=== PATIENT | female | born 1945 | race Caucasian/White ===

== ENCOUNTER 2021-03-03 13:29 | Outpatient (CLI) | payer MEDICARE, BC, SELFPAY ==
--- NOTE | 2021-03-03 13:38 | MM_ITS ---
WS: [id number] BILATERAL DIGITAL SCREENING MAMMOGRAPHY WITH CAD CLINICAL INFORMATION: SCREENING HISTORY: Screening mammogram. No current complaints. COMPARISON: None. TECHNIQUE: Bilateral CC and MLO views. FINDINGS: Scattered fibroglandular densities bilaterally. Incidental punctate calcifications left breast. No paz spicious focal mass, asymmetry, calcifications, or architectural distortion. No evidence of malignanc y. MM/[place] [id number] IMPRESSION: BI-RADS: 2-Benign FOLLOW UP: 1 Year Follow-up Recommend return to annual screening mammography.
--- NOTE | 2021-03-03 14:05 | XR_ITS ---
WS: [id number] DEXA (DUAL ENERGY X-RAY ABSORPTIOMETRY) Bone mineral density was performed using a [employer] machine. HISTORY: AGE RELATED OSTEOPOROSIS WITHOUT CURRENT PATHOLOGICAL FRACTURE COMPARISON: 08/20/2018 Left forearm BMD: 0.766 g/cm2. T score: -1.3 Z score: 1.0 Total hip BMD: Left: 1.131 g/cm2. T score: 1.0 Z score: 2.1 Right: 1.109 g/cm2. T score: 0.8 Z score: 1.9 10 year probability of a major osteoporotic fracture is 13%. Compared to the prior study from 08/20/2018. LEFT forearm bone mineral density has decreased by 3.5%. Bilateral hips bone mineral density has decreased by 1.1%. XR/XR DEXA axial skeleton* [id number] IMPRESSION: OSTEOPENIA based upon the WHO classification for females. Decrease in bone mineral density in the LEFT forearm since the prior study. No significant change involving the hips.
== END 2021-03-03 13:30 | disposition home or self-care (01) ==
PROVIDERS: PCP Family Medicine; Visit Provider Nurse Practitioner Family
DX: Z12.31 Encounter for screening mammogram for malignant neoplasm of breast (principal); M81.0 Age-related osteoporosis without current pathological fracture; M85.88 Other specified disorders of bone density and structure, other site
CPT/HCPCS: 77067; 77080

== ENCOUNTER 2021-03-12 07:47 | Outpatient (CLI) | payer MEDICARE, BC, SELFPAY ==
--- NOTE | 2021-03-12 07:55 | USCV_ITS ---
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 HISTORY: Diameter (cm) AP x Transverse x Length Velocity (cm/s) Waveform Prox Aorta: 1.94 x 2.31 x 38.30 Mid Aorta: 2.34 x 2.59 x 41.30 Distal Aorta: 5.02 x 4.71 x 7.87 49.90 Right Iliac Prox: x x 81.80 Left Iliac Prox: x x 84.60 Stent Prox Landing x x 41.80 Aneurysmal Sac Max x x Lt Lat Sac Dim Rt Lat Sac Dim Stent Dist Landing x x Right Iliac Stent x x 90.10 Left Iliac Stent x x 115.00 Right Renal Art 77.70 Left Renal Art 76.60 FINDINGS: The aortic stent graft appears to be intact with no evidence of endoleak Mild to moderate diffuse plaques in the aorta The diameter of the infrarenal aortic aneurysm sac measured 5.02 x 4.71 cm CONCLUSIONS 1. Patent aortic stent graft. 2. The maximum diameter of the infrarenal aneurysm sac is 5.02 x 4.71 cm 3. The iliac stent grafts are patent with no evidence of any significant stenosis 4. No evidence of any blood flow in the aneurysm sac Compared to the study from 01/08/2019, the aneurysm sac seems to have a slight decrease in the size. Technically limited study Dr Jose Membreno MD [facility] (Electronically Signed) Final Date: 12 March 2021 18:53 S
== END 2021-03-12 07:48 | disposition home or self-care (01) ==
PROVIDERS: PCP Family Medicine; Visit Provider Nurse Practitioner Family
DX: I71.9 Aortic aneurysm of unspecified site, without rupture (principal); Z95.828 Presence of other vascular implants and grafts
CPT/HCPCS: 93978

== ENCOUNTER 2021-04-15 09:23 | Outpatient (CLI) | payer MEDICARE, BC, SELFPAY ==
--- NOTE | 2021-04-15 09:42 | CT_ITS ---
WS: [id number] CTA CHEST WITH CT ABDOMEN AND PELVIS, with and without contrast. HISTORY: Follow-up abdominal aortic graft. TECHNIQUE: CT angiogram is performed through the chest. Additional imaging is performed through the a bdomen and pelvis with IV contrast. Sagittal and coronal reformats have been submitted. MIP imaging also reviewed. All CT scans at [facility] use at least one of these dose optimization techniqu es: automated exposure control; mA and/or kV adjustment per patient size (includes targeted exams whe re dose is matched to clinical indication); or iterative reconstruction. Contrast: Visipaque 95 cc IV. DLP: 2325.52 mGycm COMPARISON: 01/16/2019 and 03/12/2021 ultrasound. Chest CTA: Moderate atherosclerotic plaque throughout a mildly ectatic thoracic aorta. No aneurysm. T here is no dissection. Mild atherosclerotic plaque at the origin of the great vessels. No high-grade stenosis. Just less than 50% stenosis involving the RIGHT innominate. Prior CABG. Heart size is jose r l. No pericardial or pleural effusion. Mildly prominent pulmonary artery at 3.8 cm in diameter. No pu lmonary mass, pneumonia or nodules. Normal vasculature. Focal subsegmental atelectasis at the RIGHT l maria [place]es[place] base. No osseous abnormalities within the thorax. No soft tissue abnormality. Abdomen CT: Status post endovascular stenting of the abdominal aorta. Ak Chin aneurysmal sac is stable at 5.0 cm at its maximum diameter. Endovascular grafting begins just above the level of the renal ar teries. The lumen of the graft is widely patent. On the delayed imaging no endovascular leak is ident ified. Graft extends into the iliac arteries bilaterally. No aneurysmal dilatation of the iliacs. Normal appearance of the liver, spleen, adrenals and pancreas. No cortical atrophy or prior ischemic event of either kidney. 1.8 cm cyst lower pole LEFT kidney. No solid mass. Cholelithiasis without acu te cholecystitis. No adenopathy or ascites. Visualized GI tract is negative for acute process. Normal appendix. Fat-containing umbilical hernia. Pelvic CT: No free fluid or adenopathy. Prior hysterectomy. No adnexal masses. Anterior wedging of L4 from mild compression deformity which is similar to the study of 01/16/2019. CT/CT angio chest abdomen pelvis IMPRESSION: 1. Stable aorta iliac endograft. No enlargement of the nikolski aneurysm or endo vascular leak. 2. Mild atherosclerosis thoracic aorta with no aneurysm or dissection. 3. Cholelithiasis without acute cholecystitis. 4. Stable cyst lower pole LEFT kidney. 5. Stable 20% L4 compression fracture. 6. Prior hysterectomy.
[2021-04-15 10:05] LABS: Blood Urea Nitrogen 13 mg/dL (8-23)
[2021-04-15] MEDS: iodixanol 320 mg/mL 100mL Btl IV (10:18)
== END 2021-04-15 09:24 | disposition home or self-care (01) ==
PROVIDERS: PCP Family Medicine; Visit Provider Nurse Practitioner Family
DX: I71.9 Aortic aneurysm of unspecified site, without rupture (principal); Z90.710 Acquired absence of both cervix and uterus; S32.048A Other fracture of fourth lumbar vertebra, initial encounter for closed fracture; X58.XXXA Exposure to other specified factors, initial encounter; N28.1 Cyst of kidney, acquired; K80.20 Calculus of gallbladder without cholecystitis without obstruction; I70.0 Atherosclerosis of aorta
CPT/HCPCS: 71275; 74174; 82565; 84520; Q9967

== ENCOUNTER 2021-06-29 08:46 | Outpatient (CLI) | payer MEDICARE, BC, SELFPAY ==
--- NOTE | 2021-06-29 08:58 | XR_ITS ---
WS: [id number] Exam: XR chest 2V* [id number] Date/Time of Exam: 06/29/2021 8:58 AM Reason For Exam: SHORTNESS OF BREATH Comparison 07/05/2018. The lungs are clear and fully expanded. Heart size is top limits normal. Signs of previous CABG surge ry. The mediastinum is not widened. No pleural effusions. Regional bony elements are intact. XR/XR chest 2V* [id number] IMPRESSION: 1. No acute cardiopulmonary finding.
== END 2021-06-29 08:47 | disposition home or self-care (01) ==
LOC: RAD 08:54
PROVIDERS: PCP Family Medicine; Visit Provider Nurse Practitioner Family
DX: R06.02 Shortness of breath (principal)
CPT/HCPCS: 71046

== ENCOUNTER 2021-08-17 10:24 | Outpatient (CLI) | payer MEDICARE, BC, SELFPAY ==
[2021-08-17 11:05] LABS: Basophils # 0.1 10^3/uL (0.0-0.1); Basophils % 0.5 %; Eosinophils # 0.6 10^3/uL (0.0-0.8); Eosinophils % 3.2 %; Hematocrit 43.1 % (37.0-47.0); Lymphocytes # 12.4 10^3/uL (0.8-4.8); Lymphocytes % 72.1 %; Mean Corpuscular HGB Conc 32.5 g/dL (30.0-36.0); Mean Corpuscular Volume 89.4 fl (81-99); Mean Platelet Volume 9.9 fL (7.4-10.4); Monocytes # 0.7 10^3/uL (0.2-0.9); Monocytes % 4.2 %; Neutrophils % 19.8 %; Nucleated Red Blood Cells % 0 %; Platelet Count 217 10^3/cmm (130-400); Red Blood Count 4.82 10^6/uL (4.1-5.3); Red Cell Distribution Width 12.9 % (12.1-15.1); White Blood Count 17.2 10^3/uL (4.0-10.0)
[2021-08-17 11:23] LABS: Alanine Aminotransferase 12 U/L (0-33); Albumin Level 4.1 g/dL (3.5-5.2); Alkaline Phosphatase 62 IU/L (35-105); Anion Gap 17.5 (5-19); Aspartate Amino Transferase 16 U/L (0-32); Blood Urea Nitrogen 14 mg/dL (8-23); C Reactive Protein 0.7 mg/L (0.0-4.9); Calcium 9.7 mg/dL (8.5-10.5); Carbon Dioxide 24 mmol/L (22-29); Chloride 103 mmol/L (98-107); Globulin 2.3 g/dL (1.3-4.6); Glucose 93 mg/dL (65-115); Osmolality Calculated 290 mOsm/kg (285-295); Potassium 4.5 mmol/L (3.5-5.1); Sodium 140 mmol/L (136-145); Total Bilirubin 0.4 mg/dL (0.15-1.2); Total Protein 6.4 g/dL (6.6-8.7)
[2021-08-17 11:26] LABS: Erythrocyte Sedimentation Rate 6 mm/hr (0-15)
[2021-08-17 11:30] LABS: Slide Review Slide Review Perform
[2021-08-18 11:54] LABS: COMPLEMENT COMPONENT C3C 173 mg/dL (83-193); COMPLEMENT COMPONENT C4C 26 mg/dL (15-57)
[2021-08-18 11:57] LABS: CENTROMERE B ANTIBODY <1.0 NEG AI (<1.0 NEG); JO-1 ANTIBODY <1.0 NEG AI (<1.0 NEG); RNP ANTIBODY <1.0 NEG AI (<1.0 NEG); SCL-70 ANTIBODY <1.0 NEG AI (<1.0 NEG); SJOGREN'S ANTIBODY (SS-A) <1.0 NEG AI (<1.0 NEG); SM ANTIBODY <1.0 NEG AI (<1.0 NEG); SS-B <1.0 NEG AI (<1.0 NEG)
[2021-08-18 13:04] LABS: COMPLEMENT, TOTAL (CH50) >60 U/mL (31-60)
[2021-08-18 14:07] LABS: Cyclic Citrullinated Peptide <16 UNITS
[2021-08-18 15:48] LABS: ANA SCREEN, IFA NEGATIVE (NEGATIVE)
[2021-08-18 16:27] LABS: THYROID PEROXIDASE ANTIBODIES <1 IU/mL (<9)
[2021-08-20 10:37] LABS: DNA AB (DS) CRITHIDIA,IFA NEGATIVE (NEGATIVE)
== END 2021-08-17 10:25 | disposition home or self-care (01) ==
LOC: LAB 10:36
PROVIDERS: PCP Family Medicine; Visit Provider Internal Medicine Pulmonary Disease
DX: M25.641 Stiffness of right hand, not elsewhere classified (principal); M25.642 Stiffness of left hand, not elsewhere classified
CPT/HCPCS: 36415; 80053; 85025; 85651; 86140; 86160; 86162; 86200; 86235; 86255; 86376; 86431

== ENCOUNTER → 2021-09-21 08:34 | Outpatient (BNVA) | payer MEDICARE, BC, SELFPAY | PROVIDERS: PCP Family Medicine; Visit Provider Internal Medicine Rheumatology | DX: M06.9 Rheumatoid arthritis, unspecified (principal); Z79.899 Other long term (current) drug therapy; R06.00 Dyspnea, unspecified; I25.10 Atherosclerotic heart disease of native coronary artery without angina pectoris; Z79.1 Long term (current) use of non-steroidal anti-inflammatories (NSAID); Z87.891 Personal history of nicotine dependence | CPT/HCPCS: 99204 ==

== ENCOUNTER 2021-09-22 10:28 | Outpatient (CLI) | payer MEDICARE, BC, SELFPAY ==
[2021-09-22 11:11] LABS: Erythrocyte Sedimentation Rate 6 mm/hr (0-15)
[2021-09-22 11:32] LABS: 25 Hydroxy Vitamin D 38 ng/mL (30-100)
--- NOTE | 2021-09-22 11:33 | XR_ITS ---
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 Findings: No fractures or dislocations are seen. The soft tissues are unremarkable there is osteoar thritis at the articulation between the base of the right first metacarpal and the trapezium. 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
--- NOTE | 2021-09-22 11:33 | XR_ITS ---
WS: [id number] Left hand, 3 views, 09/22/2021 Clinical Data: Z79.899 - Other long-term (current) drug therapy Comparison: None. Findings: No fractures or dislocations are seen. The soft tissues are unremarkable. There is osteoarthritis at the base of the left first metacarpal articulation with the trapezium. XR/XR hand LT min 3V* [id number] Impression: Osteoarthritis of the base of the left first metacarpal.
== END 2021-09-22 10:29 | disposition home or self-care (01) ==
LOC: LAB 10:32
PROVIDERS: PCP Family Medicine; Visit Provider Internal Medicine Rheumatology
DX: M19.90 Unspecified osteoarthritis, unspecified site (principal); Z79.899 Other long term (current) drug therapy; M19.042 Primary osteoarthritis, left hand; M19.041 Primary osteoarthritis, right hand
CPT/HCPCS: 73130; 82306; 85651; 86140

== ENCOUNTER → 2021-10-04 09:53 | Outpatient (BNVA) | payer MEDICARE, BC, SELFPAY | PROVIDERS: PCP Family Medicine; Visit Provider Internal Medicine Pulmonary Disease | DX: R06.02 Shortness of breath (principal); M25.641 Stiffness of right hand, not elsewhere classified; M25.642 Stiffness of left hand, not elsewhere classified; R06.00 Dyspnea, unspecified; Z87.891 Personal history of nicotine dependence; E78.5 Hyperlipidemia, unspecified; I10 Essential (primary) hypertension | CPT/HCPCS: 99214 ==

== ENCOUNTER → 2021-12-17 09:29 | Outpatient (BNVA) | payer MEDICARE, BC, SELFPAY | PROVIDERS: PCP Family Medicine; Visit Provider Internal Medicine Pulmonary Disease | DX: R06.02 Shortness of breath (principal); M25.641 Stiffness of right hand, not elsewhere classified; M25.642 Stiffness of left hand, not elsewhere classified; R06.00 Dyspnea, unspecified; Z87.891 Personal history of nicotine dependence; I10 Essential (primary) hypertension; E78.5 Hyperlipidemia, unspecified; E78.00 Pure hypercholesterolemia, unspecified | CPT/HCPCS: 99214 ==

== ENCOUNTER 2021-12-29 12:57 | Outpatient (CLI) | payer MEDICARE, BC, SELFPAY ==
--- NOTE | 2021-12-29 14:20 | PFTS_ITS ---
Date of Study:12/29/21 Date of Dictation: MECHANICS: Forced vital capacity (FVC) is normal. Forced expiratory volume in one second (FEV1) is normal. FEV1/FVC is normal. FLOW VOLUME LOOP: Mild scooping. LUNG VOLUMES: Total lung capacity (TLC) is reduced. Residual volume (RV) is reduced. DIFFUSING CAPACITY FOR CARBON MONOXIDE: Mildly reduced. INTERPRETATION: The prebronchodilator spirometry is normal. No postbronchodilator spirometry was performed. Lung volumes are consistent with mild restriction. Gas exchange (DLCO) is mildly reduced. MTDD
== END 2021-12-29 12:58 | disposition home or self-care (01) ==
LOC: RT 13:00
PROVIDERS: PCP Family Medicine; Visit Provider Internal Medicine Pulmonary Disease
DX: R06.00 Dyspnea, unspecified (principal); I25.10 Atherosclerotic heart disease of native coronary artery without angina pectoris; F17.210 Nicotine dependence, cigarettes, uncomplicated
CPT/HCPCS: 94010; 94618; 94726; 94729

== ENCOUNTER → 2022-01-11 09:49 | Outpatient (BNVA) | payer MEDICARE, BC, SELFPAY | PROVIDERS: PCP Family Medicine; Visit Provider Internal Medicine Cardiovascular Disease | DX: I25.10 Atherosclerotic heart disease of native coronary artery without angina pectoris (principal); Z98.890 Other specified postprocedural states; I10 Essential (primary) hypertension; Z86.79 Personal history of other diseases of the circulatory system; E78.49 Other hyperlipidemia; Z87.891 Personal history of nicotine dependence; R00.1 Bradycardia, unspecified | CPT/HCPCS: 93005; 99214 ==

== ENCOUNTER 2022-02-10 11:06 | Outpatient (CLI) | payer MEDICARE, BC, SELFPAY ==
--- NOTE | 2022-02-10 11:15 | USCV_ITS ---
Radha Rivera Age: 76 Gender: F : 1945 Exam Date: 02/10/2022 11:17 Ordering Phys: Jimbo Bales MD Technologist: [place] [facility] [place]: rt side pressures BP: 120 / 71 HR: 50 Rhythm: Sinus Technical Quality: Adequate MEASUREMENTS (Male / Female) Normal Values 2D ECHO LV Diastolic Diameter PLAX 3.8 cm 4.2 - 5.9 / 3.9 - 5.3 cm LV Systolic Diameter PLAX 2.4 cm IVS Diastolic Thickness 1.3 cm 0.6 - 1.0 / 0.6 - 0.9 cm IVS Systolic Thickness 1.5 cm LVPW Diastolic Thickness 1.1 cm 0.6 - 1.0 / 0.6 - 0.9 cm LVPW Systolic Thickness 1.4 cm LVOT Diameter 2.8 cm LV Ejection Fraction 2D Teich 67.7 % LV Ejection Fraction MOD 2C 67.8 % LV Ejection Fraction 2C AL 68.0 % LA Diameter 3.5 cm Aorta at Sinotubular Diameter 3.0 cm IVC Diameter 1.6 cm M-MODE Aortic Annulus Diameter 3.4 cm LA Ao Ratio MM 1.0 MV E Point Septal Separation 1.7 cm DOPPLER AV Peak Velocity 149.0 cm/s LVOT Peak Velocity 98.0 cm/s AV Area Cont Eq vti 4.6 cm squared AV Area Cont Eq pk 4.1 cm squared MV Area PHT 5.0 cm squared Mitral E to A Ratio 0.9 MV E' Velocity 36.0 cm/s Mitral E to MV E' Ratio 5.9 Mitral E to LV E' Lateral Ratio 5.5 Mitral E to LV E' Septal Ratio 6.4 TR Peak Velocity 243.0 cm/s TR Peak Gradient 23.6 mmHg TV Peak E Velocity 85.0 cm/s Right Atrial Pressure 3.0 mmHg Pulmonary Artery Systolic Pressu 26.6 mmHg PV Peak Velocity 120.0 cm/s FINDINGS Left Ventricle Normal left ventricular size. LV systolic function is normal with EF of 55-60%. No regional wall motion abnormalities. Grade 1 diastolic dysfunction Right Ventricle The right ventricle is normal in size and function. Right Atrium Not well-visualized Left Atrium The left atrium is normal in size. Mitral Valve Structurally normal mitral valve without significant stenosis or prolapse. There is no mitral regurgitation. Aortic Valve Grossly normal. No significant stenosis. There is no aortic regurgitation. Tricuspid Valve Structurally normal tricuspid valve without significant stenosis. Mild tricuspid regurgitation. RVSP is 35 to 40 mmHg. This is consistent with mild pulmonary hypertension Pulmonic Valve Not well-visualized Pericardium Normal pericardium without effusion. Aorta Normal ascending aorta dimension. IVC CONCLUSIONS LV systolic function is normal with EF 55 to 60%. Grade 1 diastolic dysfunction. Mild tricuspid regurgitation. Mild pulmonary hypertension. Compared to prior echocardiogram from 2016, no significant changes are seen. Jus Freitas MD (Electronically Signed) Final Date: 23 February 2022 19:21 S
== END 2022-02-10 11:07 | disposition home or self-care (01) ==
LOC: RAD 11:07
PROVIDERS: PCP Family Medicine; Visit Provider Internal Medicine Pulmonary Disease
DX: I25.10 Atherosclerotic heart disease of native coronary artery without angina pectoris (principal); I07.1 Rheumatic tricuspid insufficiency; I27.20 Pulmonary hypertension, unspecified
CPT/HCPCS: 93306

== ENCOUNTER → 2022-02-16 10:04 | Outpatient (BNVA) | payer MEDICARE, BC, SELFPAY | PROVIDERS: PCP Family Medicine Adult Medicine; Visit Provider Internal Medicine Pulmonary Disease | DX: R06.00 Dyspnea, unspecified (principal); M25.641 Stiffness of right hand, not elsewhere classified; M25.642 Stiffness of left hand, not elsewhere classified; Z87.891 Personal history of nicotine dependence; I25.10 Atherosclerotic heart disease of native coronary artery without angina pectoris; Z95.1 Presence of aortocoronary bypass graft | CPT/HCPCS: 99214 ==

== ENCOUNTER → 2022-03-10 10:16 | Outpatient (BNVA) | payer MEDICARE, BC, SELFPAY | PROVIDERS: PCP Family Medicine Adult Medicine; Visit Provider Anesthesiology Pain Medicine | DX: M79.604 Pain in right leg (principal); M79.605 Pain in left leg; Z87.891 Personal history of nicotine dependence; Z79.891 Long term (current) use of opiate analgesic; G89.29 Other chronic pain; M47.816 Spondylosis without myelopathy or radiculopathy, lumbar region; M51.36 Other intervertebral disc degeneration, lumbar region | CPT/HCPCS: 99204 ==

== ENCOUNTER 2022-04-21 12:54 | Outpatient (CLI) | payer MEDICARE, BC, SELFPAY ==
--- NOTE | 2022-04-21 13:45 | MR_ITS ---
WS: [id number] MRI LUMBAR SPINE NONCONTRAST TECHNIQUE: Sagittal T1, T2 and STIR imaging. Axial T1 and T2 imaging. CLINICAL INFORMATION: M48.062 - Spinal stenosis, lumbar region with neurogenic ... COMPARISON: None. FINDINGS: Mild lumbar curve. No acute compression. Slight retrolisthesis L2 on L3 and L3 on L4. Slight anteroli sthesis L4 on L5. Tarlov cysts in the sacrum. L1-L2: Mild annular bulging. Spinal canal and foramen are patent. Mild facet arthropathy. L2-L3: Slight retrolisthesis. Mild central canal stenosis. Impingement RIGHT subarticular recess. Mil d facet arthropathy. Mild RIGHT foraminal narrowing. L3-L4: Mild disc bulging with moderate central canal stenosis. Moderate to advanced facet arthropathy . Mild RIGHT and no significant LEFT foraminal narrowing. L4-L5: Mild disc bulging with osteophytic ridging. Moderate central canal stenosis. Impingement trave rsing L5 nerve roots bilaterally. Advanced facet arthropathy with small facet effusions. Mild RIGHT f oraminal narrowing. L5-S1: Mild disc bulging with osteophytic ridging. Slight contact of the traversing LEFT greater than RIGHT S1 nerve roots. Far LEFT eccentric disc bulging. Foramen are patent. Advanced facet arthropath y. Bilateral renal cysts. Cholelithiasis. Aneurysmal abdominal aorta with aortic endograft repair. Visualized pelvic bony structures: Normal. Paravertebral soft tissues: Normal. Small disc protrusions in the cervical spine at C5-C6 and C7-T1. MR/MR lumbar spine wo con* [id number] IMPRESSION: 1. Mild lumbar curve. No acute compression. 2. Moderate central canal stenosis L3-L4 and L4-L5 worse L4-L5 with impingemen t traversing L5 nerve roots bilaterally. 3. Advanced facet arthropathy L4-L5 and L5-S1. 4. Mild central canal stenosis L2-L3 with impingement on the RIGHT subarticula r recess and traversing RIGHT L3 nerve root. Mild RIGHT L2-L3 foraminal narrowi ng. 5. Cholelithiasis. 6. Aneurysmal infrarenal abdominal aorta with Aortic endograft repair.
== END 2022-04-21 12:55 | disposition home or self-care (01) ==
LOC: RAD 12:55
PROVIDERS: PCP Family Medicine Adult Medicine; Visit Provider Anesthesiology Pain Medicine
DX: M48.062 Spinal stenosis, lumbar region with neurogenic claudication (principal); M48.061 Spinal stenosis, lumbar region without neurogenic claudication; M47.817 Spondylosis without myelopathy or radiculopathy, lumbosacral region
CPT/HCPCS: 72148

== ENCOUNTER → 2022-05-09 11:03 | Outpatient (BNVA) | payer MEDICARE, BC, SELFPAY | PROVIDERS: PCP Family Medicine Adult Medicine; Visit Provider Anesthesiology Pain Medicine | DX: G89.29 Other chronic pain (principal); M47.816 Spondylosis without myelopathy or radiculopathy, lumbar region; M51.36 Other intervertebral disc degeneration, lumbar region; M79.604 Pain in right leg; M79.605 Pain in left leg; Z87.891 Personal history of nicotine dependence | CPT/HCPCS: 99214 ==

== ENCOUNTER 2022-05-12 09:18 | Outpatient (CLI) | payer MEDICARE, BC, SELFPAY ==
--- NOTE | 2022-05-12 09:15 | USCV_ITS ---
Radha Rivera Age: 76 Gender: F : 1945 Exam Date: 05/12/2022 09:28 Ordering Phys: Aldo Rodriguez MD (Andy) ([email or web address] [email or web address] Technologist: Jarett Vega Exam Location: [facility] – [place] Indication: AAA HISTORY: Diameter (cm) AP x Transverse x Length Velocity (cm/s) Waveform Prox Aorta: 2.49 x 2.57 x 62.00 Mid Aorta: 2.15 x 2.91 x 48.80 Distal Aorta: 4.04 x 4.11 x 7.53 37.30 Right Iliac Prox: 1.05 x 1.22 x 41.60 Left Iliac Prox: 1.58 x 1.05 x 51.00 Stent Prox Landing x x Aneurysmal Sac Max x x Lt Lat Sac Dim Rt Lat Sac Dim Stent Dist Landing x x Right Iliac Stent x x Left Iliac Stent x x Right Renal Art 64.20 Left Renal Art 52.50 FINDINGS: Comparison:. 03/12/21 Normal flow in the endovascular stent graft, no endovascular leak. Continued slight decrease in size of the [place] aneurysm. Maxium diameter now 4.1 cm and compared to 5.0 cm on the prior exam. Good arterial flow in the iliac arteries. CONCLUSIONS Stable appearance of the endovascular aortic graft. No endovasculeak identifed or enlargement of the ch[place]ww[place] aneurysm. Dr. Malena Tillman DO (Electronically Signed) Final Date: 12 May 2022 13:52 S
== END 2022-05-12 09:19 | disposition home or self-care (01) ==
LOC: RAD 09:18
PROVIDERS: PCP Family Medicine Adult Medicine; Visit Provider Thoracic Surgery (Cardiothoracic Vascular Surgery)
DX: Z86.79 Personal history of other diseases of the circulatory system (principal); Z98.890 Other specified postprocedural states; I71.40 Abdominal aortic aneurysm, without rupture, unspecified; Z95.820 Peripheral vascular angioplasty status with implants and grafts
CPT/HCPCS: 93978

== ENCOUNTER 2022-05-24 09:30 | Outpatient (RCR) | payer MEDICARE, BC, SELFPAY | END 2022-06-22 23:59 | disposition home or self-care (01) | LOC: SPT 09:30 | PROVIDERS: PCP Family Medicine Adult Medicine; Visit Provider Anesthesiology Pain Medicine | DX: M54.50 Low back pain, unspecified (principal); G89.29 Other chronic pain | CPT/HCPCS: 97110; 97161 ==

== ENCOUNTER → 2022-06-02 09:24 | Outpatient (BNVA) | payer MEDICARE, BC, SELFPAY | PROVIDERS: PCP Family Medicine Adult Medicine; Visit Provider Thoracic Surgery (Cardiothoracic Vascular Surgery) | DX: Z98.890 Other specified postprocedural states (principal); Z86.79 Personal history of other diseases of the circulatory system | CPT/HCPCS: 99203 ==

== ENCOUNTER 2022-06-23 06:00 | Outpatient (RCR) | payer MEDICARE, BC, SELFPAY | END 2022-07-08 23:59 | disposition home or self-care (01) | LOC: SPT 06:00 | PROVIDERS: PCP Family Medicine Adult Medicine; Visit Provider Anesthesiology Pain Medicine | DX: M54.50 Low back pain, unspecified (principal); G89.29 Other chronic pain | CPT/HCPCS: 97110 ==

== ENCOUNTER → 2022-07-04 10:43 | Outpatient (BNVA) | payer MEDICARE, BC, SELFPAY | PROVIDERS: PCP Family Medicine Adult Medicine; Visit Provider Anesthesiology Pain Medicine | DX: G89.29 Other chronic pain (principal); M47.816 Spondylosis without myelopathy or radiculopathy, lumbar region; M51.36 Other intervertebral disc degeneration, lumbar region; M79.604 Pain in right leg; M79.605 Pain in left leg | CPT/HCPCS: 99214 ==

== ENCOUNTER → 2022-07-19 10:59 | Outpatient (BNVA) | payer MEDICARE, BC, SELFPAY | PROVIDERS: PCP Family Medicine Adult Medicine; Visit Provider Internal Medicine Cardiovascular Disease | DX: E78.49 Other hyperlipidemia (principal); I25.10 Atherosclerotic heart disease of native coronary artery without angina pectoris; E78.5 Hyperlipidemia, unspecified; Z98.890 Other specified postprocedural states; Z86.79 Personal history of other diseases of the circulatory system; I10 Essential (primary) hypertension; Z87.891 Personal history of nicotine dependence | CPT/HCPCS: 36415; 80061; 80076; 99214 ==

== ENCOUNTER → 2022-08-01 13:23 | Outpatient (BNVA) | payer MEDICARE, BC, SELFPAY | PROVIDERS: PCP Family Medicine Adult Medicine; Visit Provider Anesthesiology Pain Medicine | DX: G89.29 Other chronic pain (principal); M54.16 Radiculopathy, lumbar region | CPT/HCPCS: 64483; 64484; J1100; J3490 ==

== ENCOUNTER → 2022-08-15 13:04 | Outpatient (BNVA) | payer MEDICARE, BC, SELFPAY | PROVIDERS: PCP Family Medicine Adult Medicine; Visit Provider Anesthesiology Pain Medicine | DX: G89.29 Other chronic pain (principal); M54.16 Radiculopathy, lumbar region | CPT/HCPCS: 64483; 64484; J1100; J3490 ==

== ENCOUNTER → 2022-08-30 09:41 | Outpatient (BNVA) | payer MEDICARE, BC, SELFPAY | PROVIDERS: PCP Family Medicine Adult Medicine; Visit Provider Anesthesiology Pain Medicine | DX: G89.29 Other chronic pain (principal); M47.816 Spondylosis without myelopathy or radiculopathy, lumbar region; M51.36 Other intervertebral disc degeneration, lumbar region; M79.604 Pain in right leg; M79.605 Pain in left leg | CPT/HCPCS: 99214 ==

== ENCOUNTER → 2022-09-12 14:26 | Outpatient (BNVA) | payer MEDICARE, BC, SELFPAY | PROVIDERS: PCP Family Medicine Adult Medicine; Visit Provider Anesthesiology Pain Medicine | DX: G89.29 Other chronic pain (principal); M54.16 Radiculopathy, lumbar region | CPT/HCPCS: 64483; 64484; J1100; J3490 ==

== ENCOUNTER → 2022-09-28 09:23 | Outpatient (BNVA) | payer MEDICARE, BC, SELFPAY | PROVIDERS: PCP Family Medicine Adult Medicine; Visit Provider Anesthesiology Pain Medicine | DX: G89.29 Other chronic pain (principal); M47.816 Spondylosis without myelopathy or radiculopathy, lumbar region; M51.36 Other intervertebral disc degeneration, lumbar region; M79.604 Pain in right leg; M79.605 Pain in left leg | CPT/HCPCS: 99214 ==

== ENCOUNTER → 2022-10-20 12:55 | Outpatient (BNVA) | payer MEDICARE, BC, SELFPAY | PROVIDERS: PCP Family Medicine Adult Medicine; Visit Provider Anesthesiology Pain Medicine | DX: G89.29 Other chronic pain (principal); M47.816 Spondylosis without myelopathy or radiculopathy, lumbar region | CPT/HCPCS: 64493; 64494; 64495; J3490 ==

== ENCOUNTER → 2022-10-27 10:36 | Outpatient (BNVA) | payer MEDICARE, BC, SELFPAY | PROVIDERS: PCP Family Medicine Adult Medicine; Visit Provider Anesthesiology Pain Medicine | DX: G89.29 Other chronic pain (principal); M47.816 Spondylosis without myelopathy or radiculopathy, lumbar region; M51.36 Other intervertebral disc degeneration, lumbar region | CPT/HCPCS: 99214 ==

== ENCOUNTER → 2023-01-23 09:57 | Outpatient (BNVA) | payer MEDICARE, BC, SELFPAY | PROVIDERS: PCP Family Medicine Adult Medicine; Visit Provider Internal Medicine Cardiovascular Disease | DX: I25.10 Atherosclerotic heart disease of native coronary artery without angina pectoris (principal); Z98.890 Other specified postprocedural states; Z86.79 Personal history of other diseases of the circulatory system; I10 Essential (primary) hypertension; E78.49 Other hyperlipidemia; Z87.891 Personal history of nicotine dependence | CPT/HCPCS: 99214 ==

== ENCOUNTER → 2023-02-21 11:24 | Outpatient (BNVA) | payer MEDICARE, BC, SELFPAY | PROVIDERS: PCP Family Medicine Adult Medicine; Visit Provider Anesthesiology Pain Medicine | DX: G89.29 Other chronic pain; M47.816 Spondylosis without myelopathy or radiculopathy, lumbar region; M51.36 Other intervertebral disc degeneration, lumbar region | CPT/HCPCS: 99213 ==

== ENCOUNTER → 2023-03-15 13:50 | Outpatient (BNVA) | payer MEDICARE, BC, SELFPAY | PROVIDERS: PCP Family Medicine Adult Medicine; Visit Provider Anesthesiology Pain Medicine | DX: M47.816 Spondylosis without myelopathy or radiculopathy, lumbar region (principal) | CPT/HCPCS: 64635; 64636; J1030 ==

== ENCOUNTER → 2023-04-18 10:41 | Outpatient (BNVA) | payer MEDICARE, BC, SELFPAY | PROVIDERS: PCP Family Medicine Adult Medicine; Visit Provider Anesthesiology Pain Medicine | DX: G89.29 Other chronic pain; M47.816 Spondylosis without myelopathy or radiculopathy, lumbar region; M51.36 Other intervertebral disc degeneration, lumbar region | CPT/HCPCS: 99214 ==

== ENCOUNTER 2023-05-26 08:01 | Outpatient (CLI) | payer MEDICARE, BC, SELFPAY ==
--- NOTE | 2023-05-26 08:22 | USCV_ITS ---
Radha Rivera Age: 77 Gender: F : 1945 Exam Date: 05/26/2023 08:27 Ordering Phys: Aldo Rodriguez MD (Andy) ([email or web address] [email or web address] Technologist: BARBARA Exam Location[place] [facility] [place] Indication: AAA Repair HISTORY: Diameter (cm) AP x Transverse x Length Velocity (cm/s) Waveform Prox Aorta: 2.38 x 2.46 x 53.10 Triphasic Mid Aorta: 1.96 x 2.16 x 50.70 Triphasic Distal Aorta: 4.01 x 3.87 x 7.55 34.60 Triphasic Right Iliac Prox: 1.01 x 1.47 x 53.10 Triphasic Left Iliac Prox: 1.30 x 1.20 x 71.00 Triphasic Stent Prox Landing x x Aneurysmal Sac Max x x Lt Lat Sac Dim Rt Lat Sac Dim Stent Dist Landing x x Right Iliac Stent x x Left Iliac Stent x x Right Renal Art Left Renal Art FINDINGS: Prior endograft repair Comparison 05/14 CONCLUSIONS Distal AAA measuring 4.1 x 3.8cm AP x trans unchanged. No evidence of increasing size to suggest endoleak Normal iliac artery flow Linus Knott MD (Electronically Signed) Final Date: 26 May 2023 16:03 S
== END 2023-05-26 08:02 | disposition home or self-care (01) ==
LOC: RAD 08:01
PROVIDERS: PCP Family Medicine Adult Medicine; Visit Provider Thoracic Surgery (Cardiothoracic Vascular Surgery)
DX: I71.40 Abdominal aortic aneurysm, without rupture, unspecified (principal)
CPT/HCPCS: 93978

== ENCOUNTER → 2023-06-29 08:38 | Outpatient (BNVA) | payer MEDICARE, BC, SELFPAY | PROVIDERS: PCP Family Medicine Adult Medicine; Visit Provider Family Medicine Adult Medicine | DX: I10 Essential (primary) hypertension (principal); E78.5 Hyperlipidemia, unspecified; E78.49 Other hyperlipidemia; J44.9 Chronic obstructive pulmonary disease, unspecified | CPT/HCPCS: 80053; 80061; 84443; 85025 ==

== ENCOUNTER → 2023-08-02 13:45 | Outpatient (BNVA) | payer MEDICARE, BC, SELFPAY | PROVIDERS: PCP Family Medicine Adult Medicine; Visit Provider Internal Medicine Cardiovascular Disease | DX: I10 Essential (primary) hypertension (principal); E78.49 Other hyperlipidemia; I25.10 Atherosclerotic heart disease of native coronary artery without angina pectoris; R06.00 Dyspnea, unspecified; C91.10 Chronic lymphocytic leukemia of B-cell type not having achieved remission; Z87.891 Personal history of nicotine dependence | CPT/HCPCS: 99214 ==

== ENCOUNTER 2023-08-31 09:29 | Oncology outpatient (recurring) (ONCR) | payer MEDICARE, BC, SELFPAY | END 2023-09-21 23:59 | disposition home or self-care (01) | LOC: ONCMED 09:30 | PROVIDERS: PCP Family Medicine Adult Medicine; Visit Provider Internal Medicine Medical Oncology | DX: C91.10 Chronic lymphocytic leukemia of B-cell type not having achieved remission (principal) | CPT/HCPCS: 99214 ==

== ENCOUNTER → 2024-09-02 13:35 | Outpatient (BNVA) | payer MEDICARE, BC, SELFPAY | PROVIDERS: PCP Family Medicine; Visit Provider Family Medicine | DX: I10 Essential (primary) hypertension (principal); I25.10 Atherosclerotic heart disease of native coronary artery without angina pectoris; E78.49 Other hyperlipidemia; C91.10 Chronic lymphocytic leukemia of B-cell type not having achieved remission; M54.50 Low back pain, unspecified; G89.29 Other chronic pain; R05.3 Chronic cough; F41.9 Anxiety disorder, unspecified; F32.A Depression, unspecified; M75.01 Adhesive capsulitis of right shoulder; Z87.891 Personal history of nicotine dependence; Z76.89 Persons encountering health services in other specified circumstances | CPT/HCPCS: 80053; 80061; 84439; 84443; 85025 ==

== ENCOUNTER 2024-09-10 10:40 | Outpatient (RCR) | payer MEDICARE, BC, SELFPAY | END 2024-09-20 23:59 | disposition home or self-care (01) | LOC: SPT 10:40 | PROVIDERS: PCP Family Medicine; Visit Provider Family Medicine | DX: M54.50 Low back pain, unspecified (principal); G89.29 Other chronic pain | CPT/HCPCS: 97110; 97161 ==

== ENCOUNTER 2025-02-14 14:26 | Outpatient (CLI) | payer MEDICARE, BC, SELFPAY ==
--- NOTE | 2025-02-14 14:56 | CTR_ITS ---
PROCEDURE INFORMATION: Exam: CTA Abdomen and Pelvis With Contrast Exam date and time: 02/14/2025 2:42 PM Age: 79 years old Clinical indication: Screening exam; Purpose: Aaa repair; Prior surgery; Surgery date: 6+ months; Surgery type: Cabg, stents, abdominal endograph; HX of cll; Additional info: F/u aaa repair TECHNIQUE: Imaging protocol: Computed tomographic angiography of the abdomen and pelvis with contrast. Exam focused on the arteries. 3D rendering (Not supervised by radiologist): MIP and/or 3D reconstructed images were created by the technologist. Radiation optimization: All CT scans at this facility use at least one of these dose optimization techniques: automated exposure control; mA and/or kV adjustment per patient size (includes targeted exams where dose is matched to clinical indication); or iterative reconstruction. Contrast material: OMNI 350; Contrast volume: 100 ml; Contrast route: INTRAVENOUS (IV); COMPARISON: CT ang [place] bill [id number] 04/15/2021 10:10 AM RADIATION DOSE METRICS: Total DLP (mGy-cm): 3.04 FINDINGS: Pulmonary arteries: There is enlargement of the main pulmonary artery to 4 cm. This can be seen with pulmonary artery hypertension. No evidence of pulmonary emboli. There is atherosclerosis of the aorta and branch vessels. Postop changes of median sternotomy and CABG are present. Aorta: Postop changes of endovascular aortic repair are present from the level of the SMA to the common iliac arteries. The crow aorta has decreased in size to a maximum of 4 cm. Evidence for endovascular leak Celiac trunk and mesenteric arteries: No occlusion or significant stenosis. Renal arteries: No occlusion or significant stenosis. Right iliac arteries: No occlusion or significant stenosis. Left iliac arteries: No occlusion or significant stenosis. Liver: No mass. Gallbladder and biliary ducts: Gallstones are present. Pancreas: Unremarkable. No mass. No ductal dilation. Spleen: Unremarkable. No splenomegaly. Adrenal glands: Unremarkable. No mass. Kidneys and ureters: There are bilateral simple renal cysts. The largest is 3.1 cm on the left. No further follow-up is recommended. Stomach and bowel: Unremarkable. No obstruction. No mucosal thickening. Appendix: No evidence of appendicitis. Intraperitoneal space: Unremarkable. No free air. No significant fluid collection. Lymph nodes: Unremarkable. No enlarged lymph nodes. Urinary bladder: Unremarkable. No mass. Reproductive: The uterus is surgically absent. Bones/joints: There are degenerative changes of the lower lumbar spine with multi level degenerative disc disease. No lytic or blastic lesions are identified. Soft tissues: Unremarkable. CT/CT banner chucho [facility] [id number] IMPRESSION: 1. Status post aorta iliac endograft. Interval decrease in the crow aorta. No evidence endovascular leak. 2. Enlargement of the pulmonary artery which can be seen with pulmonary artery hypertension. 3. Cholelithiasis without evidence for cholecystitis. 4. Status post hysterectomy. 5. Degenerative changes of the lower lumbar spine.
[2025-02-14] MEDS: iohexol 350 mg/mL 500 mL Btl (per mL) IV (14:59)
== END 2025-02-14 14:27 | disposition home or self-care (01) ==
LOC: RAD 14:27
PROVIDERS: PCP Family Medicine; Visit Provider Family Medicine
DX: Z09 Encounter for follow-up examination after completed treatment for conditions other than malignant neoplasm (principal); Z98.890 Other specified postprocedural states; Z86.79 Personal history of other diseases of the circulatory system; K80.20 Calculus of gallbladder without cholecystitis without obstruction
CPT/HCPCS: 71275; 74174

== ENCOUNTER 2025-02-20 14:03 | Outpatient (CLI) | payer MEDICARE, BC, SELFPAY ==
--- NOTE | 2025-02-20 14:10 | XR_ITS ---
WS: [id number] Left hip, AP and frog-leg views, 02/20/2025 Clinical Data: L hip pain Comparison: None. Findings: No fractures or dislocations are seen. The left hip shows no erosion, sclerosis, narrowing, cyst formation or fragmentation of the left femoral head. There is slight loss of the normal spherical outline of the femoral head and there is an acetabular lip. The soft tissues are not remarkable. The adjacent pelvis is normal. There is an aortic stent with extensions in the common iliac arteries. XR/XR hip LT 2-3V wo/w pel* [id number] Impression: Moderate osteoarthritis of the left hip.
== END 2025-02-20 14:04 | disposition home or self-care (01) ==
PROVIDERS: PCP Family Medicine; Visit Provider Family Medicine
DX: M19.012 Primary osteoarthritis, left shoulder (principal)
CPT/HCPCS: 73502

== ENCOUNTER → 2025-03-06 09:00 | Outpatient (BNVA) | payer MEDICARE, BC, SELFPAY | PROVIDERS: PCP Family Medicine; Visit Provider Orthopaedic Surgery | DX: M16.12 Unilateral primary osteoarthritis, left hip (principal) | CPT/HCPCS: 99204 ==

== ENCOUNTER 2025-04-28 08:36 | Outpatient (RCR) | payer MEDICARE, BC, SELFPAY | END 2025-05-19 11:05 | disposition home or self-care (01) | LOC: SPT 08:36 | PROVIDERS: Visit Provider Orthopaedic Surgery | DX: M25.552 Pain in left hip (principal) | CPT/HCPCS: 97161; 97530 ==

== ENCOUNTER → 2025-05-19 15:31 | Outpatient (BNVA) | payer MEDICARE, BC, SELFPAY | PROVIDERS: PCP Family Medicine; Visit Provider Anesthesiology Pain Medicine | DX: M47.816 Spondylosis without myelopathy or radiculopathy, lumbar region (principal); M43.16 Spondylolisthesis, lumbar region; M48.56XS Collapsed vertebra, not elsewhere classified, lumbar region, sequela of fracture | CPT/HCPCS: 72110 ==

== ENCOUNTER → 2025-06-04 10:48 | Outpatient (BNVA) | payer MEDICARE, BC, SELFPAY | PROVIDERS: PCP Family Medicine; Visit Provider Anesthesiology Pain Medicine | DX: M79.18 Myalgia, other site (principal); M47.816 Spondylosis without myelopathy or radiculopathy, lumbar region; M51.369 Other intervertebral disc degeneration, lumbar region without mention of lumbar back pain or lower extremity pain; G89.29 Other chronic pain | CPT/HCPCS: 20553; 99213; J1010; J3490 ==